=== PATIENT | female | born 1975 | race Caucasian/White ===

== ENCOUNTER 2022-01-31 23:24 | Emergency (ER) | payer MEDICAID ==
[~2022-01-31] VITALS: Ht 165.1 cm; Wt 84.8 kg
[2022-01-31 23:30] VITALS: BP 119/87
--- NOTE | 2022-02-01 00:35 | NUR ---
Wheel chair to bed 7 with her family.
--- NOTE | 2022-02-01 01:00 | NUR ---
46/F BIB DAUGHTER C/O SHARP LEFT ANKLE PAIN 8/10 AFTER FALLING DOWN THE STEP EARLIER TODAY. 800MG IBUPROFEN TAKEN WITH LITTLE RELIEF. ANKLE IS SWOLLEN. PATIENT IN BED WITH LEG ELEVATED. DAUGHTER AT BEDSIDE. SX THYROID REMOVAL
[2022-02-01] MEDS ORDERED: HYDROcodone/APAP 10/325 MG 1 TAB TAB PO ONE (01:05)
[2022-02-01] MEDS ORDERED: HYDROcodone/APAP 10/325 MG 1 TAB TAB ONE (01:20)
--- NOTE | 2022-02-01 01:20 | NUR ---
PATIENT COMPLAINED SHARP PAIN 05/06. MD AWARE. PO PAIN MED GIVEN ORDERED PER MD ACUNA. PATIENT AWARE OR MED GIVEN AN EXPLAINED IT WOULD HELP RELIEF PAIN. NO ADVERSE REACTION NOTED AT THIS TIME.
--- NOTE | 2022-02-01 01:49 | NUR ---
ERMD AT BEDSIDE.
[2022-02-01] MEDS ORDERED: HYDR-5080 PO (02:04)
[2022-02-01] MEDS ORDERED: IBUP-2213 PO (02:04)
[2022-02-01 02:19] VITALS: BP 142/99
--- NOTE | 2022-02-01 02:19 | NUR ---
Patient discharged with v/s stable. Written and verbal after care instructions given on ankle fracture and cast and explained. Patient alert, oriented and verbalized understanding of instructions. Wheel Chair Assisted with by EMT and daughter. All questions addressed prior to discharge. ID band removed. Patient advised to follow up with PMD. Rx of Hydrocodone/Acetaminophen and Ibuprofen given.
--- NOTE | 2022-02-01 02:36 | NUR ---
The patient's care was reviewed and supervised by Melina Jones RN.
== END 2022-02-01 02:19 | disposition home or self-care (01) ==
LOC: MED 23:24
DX: S82.492A Other fracture of shaft of left fibula, initial encounter for closed fracture (principal); W22.8XXA Striking against or struck by other objects, initial encounter; Y93.89 Activity, other specified; Y92.89 Other specified places as the place of occurrence of the external cause; Y99.8 Other external cause status
CPT/HCPCS: 29515; 73610; 99285